=== PATIENT | male | born 1955 | race Caucasian/White ===

== ENCOUNTER 2018-03-14 21:14 | Inpatient (IN) ==
--- NOTE | 2018-03-14 21:59 | Diag Imaging Result Doc PS360 ---
CHEST-1 VIEW - 03/14/2018 INDICATION: cough COMPARISON: 03/13/2018 FINDINGS: The lungs are normally expanded and clear. Heart size and mediastinal contours are normal. No pneumothorax or pleural effusion. IMPRESSION: Negative exam. Electronically signed by Uday Pryor 03/14/2018 9:56 PM
[2018-03-14] MEDS ORDERED: MAXIPIME 2 GM in NS 100 ML IV ONE (22:12)
[2018-03-14] MEDS ORDERED: VANCOMYCIN 1 GM/NS 1 GM/250 ML IVPB IV ONE (22:12)
[2018-03-14] MEDS ORDERED: NS 1,000 ML IV ONE (22:13)
[2018-03-14] MEDS ORDERED: MORPHINE IV ONE (22:13)
[2018-03-14] MEDS ORDERED: TYLENOL LIQUID PO ONE (22:13)
[2018-03-14 22:53] LABS: BASO# 0.02 X1000 (0.0-0.2); BASO% 0.1 % (0.0-0.8); EOS# 0.01 X1000 (0.0-0.7); HEMATOCRIT 29.2 % (42.0-52.0); HEMOGLOBIN 9.6 g/dL (14.0-18.0); IMM GRAN# 0.09 X1000 (0.0-0.04); IMM GRAN% 0.4 % (0.0-0.5); LYMPH# 1.86 X1000 (1.2-3.4); LYMPH% 8.2 % (20.5-51.1); MCH 28.9 PG (27-31); MCHC 32.9 g/dL (33-37); MONO# 2.06 X1000 (0.11-0.59); MONO% 9.1 % (1.7-9.3); MPV 10.7 FL (7.4-10.4); NEUT# 18.54 X1000 (1.4-6.5); NEUT% 82.2 % (42.2-75.2); PLT 190 X1000 (130-400); RBC 3.32 XMIL (4.7-6.1); RDW 13.2 % (11.5-14.5); WBC 22.58 X1000 (4.8-10.8)
[2018-03-14 23:04] LABS: AGAP 11; ALB/GLOB RATIO 1.2; ALBUMIN 3.5 g/dL (3.5-5.0); ALKALINE PHOSPHATASE 64 U/L (32-122); BUN 16 mg/dL (8-22); CALCIUM 8.3 mg/dL (8.8-10.2); CHLORIDE 100 mmol/L (98-107); COSMO 272; CREATININE 0.9 mg/dL (0.7-1.2); ESTIMATED GFR > 60; GLUCOSE 119 mg/dL (70-104); GOT 15 U/L (10-34); GPT 13 U/L (10-44); POTASSIUM 3.6 mmol/L (3.5-5.1); SODIUM 135 mmol/L (136-145); TCO2 24 mmol/L (25-35); TOTAL BILIRUBIN 1.47 mg/dL (0.20-1.00); TOTAL PROTEIN 6.4 g/dL (6.3-8.3)
[2018-03-14 23:28] LABS: C REACTIVE PROT QUANT 198.16 mg/L (0.00-5.00); URIC ACID 3.9 mg/dL (3.4-7.0)
[2018-03-14] MEDS ORDERED: TYLENOL PO PRN (23:48)
[2018-03-15] MEDS: NS 1,000 ML IV SCH ×3 (01:45→18:31)
[2018-03-15 01:47] LABS: URINE SOURCE CLEAN CATCH
[2018-03-15] MEDS: LOVENOX SUBQ SCH ×2 (01:51→23:23)
[2018-03-15 02:10] LABS: BILIRUBIN URINE NEGATIVE (NEGATIVE); BLOOD URINE NEGATIVE (NEGATIVE); COLOR YELLOW; GLUCOSE URINE NEGATIVE (NEGATIVE); KETONE URINE 10 mg/dL (NEGATIVE); LEUKOCYTES URINE NEGATIVE (NEGATIVE); NITRITE URINE NEGATIVE (NEGATIVE); PROTEIN URINE 50 mg/dL (NEGATIVE); SP GRAVITY URINE 1.026; TURBIDITY URINE CLEAR (CLEAR); UROBILINOGEN URINE 8 mg/dL (NORMAL)
[2018-03-15 02:12] LABS: UR EPITHELIAL CELLS <10 /HPF (<10); URINE BACTERIA NEGATIVE /HPF; URINE RBC <10 /HPF (<10); URINE WBC <10 /HPF (<10)
[2018-03-15] MEDS: MORPHINE IV PRN ×5 (03:25→23:22)
[2018-03-15] MEDS: DUONEB (A & A) INH PRN ×3 (04:16→20:03)
[2018-03-15 07:06] LABS: BASO# 0.02 X1000 (0.0-0.2); BASO% 0.2 % (0.0-0.8); EOS# 0.01 X1000 (0.0-0.7); EOS% 0.1 % (0.0-10.0); HEMATOCRIT 35.3 % (42.0-52.0); HEMOGLOBIN 11.8 g/dL (14.0-18.0); IMM GRAN# 0.04 X1000 (0.0-0.04); IMM GRAN% 0.3 % (0.0-0.5); LYMPH# 1.48 X1000 (1.2-3.4); LYMPH% 12.1 % (20.5-51.1); MCH 29.4 PG (27-31); MCHC 33.4 g/dL (33-37); MONO% 9.8 % (1.7-9.3); MPV 10.8 FL (7.4-10.4); NEUT# 9.48 X1000 (1.4-6.5); NEUT% 77.5 % (42.2-75.2); PLT 150 X1000 (130-400); RBC 4.01 XMIL (4.7-6.1); RDW 13.4 % (11.5-14.5); WBC 12.23 X1000 (4.8-10.8)
--- NOTE | 2018-03-15 07:10 | HISTORY AND PHYSICAL ---
PRIMARY CARE PHYSICIAN: Pihlip Huertas DO REASON FOR ADMISSION: A 5-day history of intermittent fever, chills, due to history of progressive weakness and 2-day history of bilateral knee swelling and pain. HISTORY OF PRESENT ILLNESS: Mr. Pratik Pak is a 63-year-old male with past medical history of hepatitis C. Recently completed hepatitis C treatment. Last dose of Harvoni was February 24. He said he had been doing well up until about five days ago when he started feeling diffuse aches and pains with subjective low-grade fever and intermittent chills. Three days later he had a vomiting episode that night and was awakened to find that both of his knees were slightly swollen and in a lot of pain. He says as a consequence of the pain in his knees he was barely able to stand and ambulate and he had to require a walker to get around. The next morning he awoke the size of the swelling had doubled and the pain intensity also doubled. He said he also experienced generalized weakness. He denies any shortness of breath but he said he had been coughing for the last couple of days, nonproductive. It was at this juncture he went to the ER, which was that same day, i.e., yesterday, and he was diagnosed as having a possible right lower lobe pneumonia. He was given Levaquin and sent home and also given some IV fluids. Today the patient said this weekend he had gotten progressively worse despite the medication he received and he was also called in by the ER because his blood cultures were growing gram-negative rods. He denies any genitourinary complaints. No GI complaints. No focal neurological complaints. No rash. No arthralgia or swelling elsewhere other than his knees. No polyuria or polydipsia is noted. His urine is a little darker than normal. REVIEW OF SYSTEMS: A 12-system review was done. Positive finding as per HPI. The patient states he has been experiencing functional fecal incontinence due to the fact that he is unable to get up from the pain in his knees. ALLERGIES: None. MEDICATIONS: Other than the Levaquin, he is on no other medications. SURGICAL HISTORY: He has had joint implant of the right hallux. He has had bilateral knee surgery. He has cholecystectomy, dental procedures, surgery for detached retina. FAMILY HISTORY: Negative for heart disease, diabetes or cancer in first-degree relatives. SOCIAL HISTORY: The patient smokes half a pack a day and drinks about two beers. No illicit drug use. . LABORATORY DATA: His lab work at this point in time is pending. PHYSICAL EXAMINATION: VITAL SIGNS: Temperature is 98.4, heart rate 100, blood pressure is 151/113, respiratory rate is 18, oxygen saturation 96% on room air. GENERAL: He is middle-aged man who appears acutely ill. He is alert and oriented to person and time. Normal mood and affect. HEENT: Head is normocephalic, atraumatic. Eyes: PERRL, EOMI. He is anicteric and not pale. ENT and oropharyngeal exam is grossly normal. NECK: Supple. No JVD or carotid bruit, thyromegaly. No lymphadenopathy appreciated. CHEST: Decreased entry in the right lower base with questionable few crepitations noted. No wheezes. CARDIOVASCULAR: First and second heart sounds heard. No gallop, murmurs, rub. Rhythm is regular. ABDOMEN: Slightly protuberant, soft. No tenderness, no organomegaly. Bowel sounds hypoactive. RECTAL: Deferred at this time. EXTREMITIES: The patient has noticeable bilateral knee swelling. Moderate to large sized effusions of both knees. They are extremely warm to touch. They are also moderately tender to touch. The patient is unable to flex knee because of the excruciating pain and he would not even allow me to touch his knees to assess for passive range of motion. No erythema overlying the knees. No edema, clubbing or cyanosis. The patient has very good pulse volume distally in all extremities with god capillary refill. NEUROLOGIC: No gross focal deficits. SKIN: Intact with no breakdown, lesions, or erythema. MUSCULAR: See above. The patient has good power in upper extremities, 4/5. Difficulty to evaluate the patient's strength in lower extremities although he is able to dorsi and plantar flex with good strength but this is somewhat limited by the excruciating pain in both knees. ASSESSMENT: 1. Gram-negative bacteremia/sepsis which could have been anything from ? a pneumonia acquired Haemophilus influenza versus alternative tract, i.e. genitourinary versus GI. 2. Right lower lobe pneumonia. 3. Hypertension. 4. Possible septic arthritis secondary to seeding of prosthesis versus reactive inflammatory virus. 5. Recent hepatitis C treatment. PLAN: The patient will be started with high dose Maxipime to cover for gram- negative bacteremia. This will include coverage for pseudomonas. IV Vancomycin will also be given to cover for staphylococcal pneumonia and possible staphylococcal septic arthritis pending final cultures. Consult ID and Orthopedics to see patient. The latter will probably perform an arthrocentesis. Cultures will be probably sent off. Uric acid level has been ordered to rule out coexisting gout. Will treat patient symptomatically, Tylenol, opioids and if renal function is intact we will consider an NSAID. The patient's blood pressure is noted to be elevated but this can be from pain-related issues. In the interim will start patient on low-dose Cardura for blood pressure and this can be uptitrated after discussion with physician. Aggressive IV fluid resuscitation will be administered and if lactate levels are high this will also be followed simultaneously. If bacteremia is extensive, consider echocardiogram. Sed rate will also be ordered and need to be followed. It is possible that patient's knee swelling could be a reactive inflammatory arthritis?, effects of Harvoni ? likely. Will dictate further if any gross abnormalities in patient's lab work is noted. In the interim, the patient will be admitted to the ICU as a precautionary measures overnight and if he is stable will transfer to the floor. cc: MD Philip Marshall, DO DRISCOLL
[2018-03-15 07:17] LABS: AGAP 8; ALBUMIN 2.9 g/dL (3.5-5.0); ALKALINE PHOSPHATASE 68 U/L (32-122); BUN 15 mg/dL (8-22); CALCIUM 7.8 mg/dL (8.8-10.2); CHLORIDE 106 mmol/L (98-107); COSMO 279; CREATININE 0.8 mg/dL (0.7-1.2); ESTIMATED GFR > 60; GLUCOSE 112 mg/dL (70-104); GOT 38 U/L (10-34); GPT 29 U/L (10-44); POTASSIUM 3.8 mmol/L (3.5-5.1); SODIUM 139 mmol/L (136-145); TCO2 25 mmol/L (25-35); TOTAL BILIRUBIN 1.26 mg/dL (0.20-1.00); TOTAL PROTEIN 5.7 g/dL (6.3-8.3)
--- NOTE | 2018-03-15 07:53 | Diag Imaging Result Doc PS360 ---
KNEE 1-2 VIEWS-RIGHT - 03/14/2018 INDICATION: knee swelling TECHNIQUE: Two views COMPARISON: 02/22/2013 FINDINGS: There has been knee replacement. There is a large nonspecific suprapatellar joint effusion. No fracture or dislocation. No hardware fracture or loosening. No bony erosions. IMPRESSION: Large suprapatellar joint effusion, indeterminate. Electronically signed by Uday Pryor 03/15/2018 7:51 AM
--- NOTE | 2018-03-15 08:05 | Diag Imaging Result Doc PS360 ---
KNEE 1-2 VIEWS-LEFT - 03/14/2018 INDICATION: knee swelling TECHNIQUE: Two views COMPARISON: 02/22/2013 FINDINGS: There has been knee replacement. No fracture or dislocation. No hardware fracture or loosening. There is a large nonspecific joint effusion. IMPRESSION: Large nonspecific joint effusion. Electronically signed by Uday Pryor 03/15/2018 8:02 AM
[2018-03-15] MEDS ORDERED: DIPRIVAN 1% ONE (09:13)
[2018-03-15] MEDS ORDERED: VERSED ONE (09:13)
[2018-03-15] MEDS ORDERED: MAXIPIME 1 GM in NS 50 ML IV SCH (09:15)
[2018-03-15] MEDS ORDERED: XYLOCAINE-MPF 2% ONE (09:16)
--- NOTE | 2018-03-15 09:51 | INFECTIOUS DISEASE CONSULT REP ---
DATE: 03/15/2018 CONCLUSION: The patient has a gram-negative marianela bacteremia which unfortunately appears to have hematogenously involved both of the patient's knee prostheses. The exact origin of the gram- negative marianela is uncertain to me. If it turns out to be Haemophilus, then most likely the patient had some type of upper respiratory infection such as a sinusitis as the origin. The patient's chest x- ray is clear, thus making pneumonia an unlikely possibility. I also think the patient should be checked to see if he has an immunoglobulin deficiency. RECOMMENDATIONS: I have under sterile conditions bill fluid from the patient's right knee. It was purulent. It has been sent to the laboratory for cell count, crystals, Gram stain, and culture. The patient was given cefepime. I have increased the dose to 2 g IV every 12 hours pending the identification and susceptibility of the gram-negative marianela. DISCUSSION: The patient tells me that approximately a week ago he began having some fever and cough. He and also developed some shoulder pain, which has cleared, but his knees now have become swollen and are very painful with any movement. As mentioned above, I obtained purulent fluid from the knee and I am sure it is present in the other knee as well. The patient's blood is growing a gram-negative marianela. X-ray of both knee show large joint effusions. The patient's chest x-ray showed no infiltrate. Urinalysis showed no white cells or bacteria. Creatinine is 0.8. GFR is greater than 60. Liver function studies are normal. The patient's CBC initially, the white count was 22,000, today it is 12,230, hemoglobin is 11.8, and platelet count is 150,000. There is some question also that the patient might have eaten some sausage which was not very fresh and might not have been cooked thoroughly. PAST MEDICAL HISTORY/REVIEW OF SYSTEMS: Eyes and ears: The patient wears glasses. His hearing is okay. Neck: No stiffness. Respiratory: See present illness. Cardiac: No chest pain or palpitations. GI: No nausea, vomiting, or diarrhea. : No dysuria or flank pain. Bones, joints, muscles: See present illness. Endocrine: Patient does not have diabetes or thyroid disease. Neurologic: Patient does not have seizures. Prior to this illness he did not have any loss of motor or sensory function. PREVIOUS HOSPITALIZATIONS AND OPERATIONS: Patient has had surgery on his left foot. He has also had bilateral total knee arthroplasties. MEDICAL DISEASES: Positive for skin cancer. Negative for diabetes and hypertension. INFECTIOUS DISEASE HISTORY: Positive for hepatitis C. The patient has been treated with Harvoni and he does not have any active hepatitis C. FAMILY HISTORY: Positive for cancer and myocardial infarction. SOCIAL HISTORY: The patient lives in [place]. He is . He has a dog as a pet. 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 He smokes cigarettes. He rarely drinks alcoholic beverages. He does not abuse drugs. HOME MEDICATIONS: Include the following: Hydrocodone, Levaquin, multivitamins , and Cialis. PHYSICAL EXAMINATION: Vital Signs: Temperature is 98.7 degrees, pulse 84, respirations 20, blood pressure 129/71. The patient is 6 feet 4 inches tall and weighs 236 pounds. General: This is an obese, middle-aged male. He is in no acute distress. Head, eyes, ears, nose, and throat: He can hear my spoken words and see near objects. I do not see any white patches on his tongue. His sinuses are not tender. Neck: No meningismus. Lungs: Clear to auscultation. Cardiovascular: Heart rate is regular. Abdomen: Soft and nontender. Bones, joints, muscles : Both knees have large effusions. It causes the patient a lot of pain when his knees are moved. Integument: No rash noted. Neurologic: The patient is alert. He can move his extremities but it is painful when he moves his knees. There is no tremor. His sensation is intact to touch. His memory as regarding his medical history is intact. Integument: No rash noted. Thank you for the consult. cc: Fabrizio Seth MD [facility]
[2018-03-15] MEDS ORDERED: VANCOMYCIN 1 GM/NS 1 GM/250 ML IVPB ONE (10:08)
--- NOTE | 2018-03-15 10:15 | CONSULTATION ---
DATE OF CONSULTATION: 03/15/2018 HISTORY OF PRESENT ILLNESS: Mr. Pak is a 63-year-old male who presented to the emergency department with bilateral knee pain and swelling in his knees, and increasing pain in his knees that started this past and then about a 2-day history of getting some chills and increasing pain, so he came into the ER. He was admitted per the hospitalist service and Dr. Seth was consulted. Dr. Seth tapped the right knee this morning and got purulent material out of the knee joint, so Orthopedics was consulted. Mr. Pak had bilateral total knees about 4 years ago and has done great from those, but, unfortunately, like I said, over the past few days, have been getting inflamed, swollen, red, and painful. PAST MEDICAL HISTORY: Hepatitis C. PAST SURGICAL HISTORY: Bilateral knee replacements, right 1st MTP joint replacement, cholecystectomy. ALLERGIES: None. MEDICATIONS: Per the medical record. FAMILY HISTORY: Negative for heart disease. SOCIAL HISTORY: He smokes about half pack a day and drinks about 2 beers a day. REVIEW OF SYSTEMS: Positive for bilateral knee pain. All other systems are essentially negative. PHYSICAL EXAMINATION: General: Well-developed, well-nourished male who is in no acute distress. Head and Neck: Normocephalic, atraumatic. Respirations: Nonlabored breathing. Cardiovascular: Regular rate. Abdomen: Nondistended. Extremities: On right lower extremity exam, he has a lot of swelling to the knee. There is pain there with palpation. There is pain with range of motion. One can see where Dr. Seth tapped the knee. There is Betadine and a dressing there. He is neurovascularly intact to the right lower extremity. On left lower extremity exam, he has swelling to the knee about the same. It is red, hot, and swollen, and he has pain with range of motion. RADIOGRAPHS: Bilateral knee x-rays show a large supracondylar effusion. I do not see any hardware loosening. No fracture. ASSESSMENT: Bilateral septic knee, periprosthetic infection. PLAN: I discussed with Mr. Pak today that we are going to plan washing out the knees today. We do not have the polyethylene to exchange them today. It is at another facility, so we will order have to order those and maybe do a poly exchange in a few days from now, but we are going ahead and wash the knees out now and put antibiotic beads in to decrease his bacterial burden, and get him on IV antibiotics. I went over with him the procedure, risks, benefits, and potential complications. Risks include, but are not limited to infection, wound healing problems, damage to nerves, arteries and veins, numbness, malunion, nonunion, hardware-related issues, continued pain, DVT, and anesthesia-related risks. After discussing these with the patient, he expressed understanding and wished to proceed. We will get everything done now. He is NPO today. We have already called in the team. cc: Diogenes Harris MD
[2018-03-15] MEDS ORDERED: FENTANYL ONE (10:26)
[2018-03-15] MEDS: TOBRAMYCIN POWDER MISC ONE ×4 (11:00→14:01)
[2018-03-15] MEDS: VANCOMYCIN ONE ×4 (11:00→14:01)
[2018-03-15 11:23] LABS: BODY FLUID SOURCE SYNOVIAL FLUID; WBC BF 50180 /cumm
[2018-03-15 11:24] LABS: MONOS 8 %; POLYS 92 %
[2018-03-15] MEDS: DEMEROL ONE ×2 (12:04→18:33)
--- NOTE | 2018-03-15 12:18 | OPERATIVE NOTE ---
PROCEDURE DATE: 03/15/2018 POSTOPERATIVE DIAGNOSIS: Bilateral total knee periprosthetic infection. POSTOPERATIVE DIAGNOSIS: Bilateral total knee periprosthetic infection. PROCEDURES: 1. Bilateral knee irrigation and debridement with knee arthrotomy. 2. Bilateral knee placement of dissolvable antibiotic beads. SURGEON: Dr. Diogenes Harris. SERVICE TECH/WELDER: None. ANESTHESIA: General. No tourniquet was used. BLOOD LOSS: 50 mL blood loss on the left, 50 mL blood loss on the right. IMPLANTS: Dissolvable antibiotic beads with tobramycin and vancomycin and Hemovac drain. DISPOSITION: To PACU, hemodynamically stable. INDICATION FOR PROCEDURE: Mr. Pak is a 63-year-old male who started having some knee pain this past week. He started getting swelling in his knee this past which was 03/11/2018. Unfortunately it progressed and he came in last night. He was admitted per the hospitalist service. Dr. Seth tapped his knee this morning and found pus. Orthopedics was consulted. At that time I came in we made him NPO and took him to the OR this morning for bilateral knee wash out. I discussed with him the procedure, and he expressed understanding and wished to proceed. DESCRIPTION OF PROCEDURE: Mr. Pak was identified in the preoperative holding area. Bilateral knees were marked as correct surgical site. He was then wheeled to the operating room, placed supine on the operating table. All bony prominences well padded. He was induced under general anesthesia. LMA was placed. Bilateral lower extremities prepped with chlorhexidine, gluconate scrub and then ChloraPrep, and draped in normal sterile fashion. Surgical pause was performed. We identified the correct patient, correct side, and the correct procedure. Preop antibiotics were given. I started with the left knee. We went through his midline incision that was there previously and dissection was carried down to the deep fascia. We made a medial knee arthrotomy and immediately got a lot of pus out. There was a pretty good bit. We took cultures and then I used a suction tip and resected all of that purulent material. After I felt we had gotten all of that purulent material evacuated, I then irrigated the knee copiously with normal saline. We then used Vashe as well to clean the knee to try to kill bacteria and then washed it out again. We then mixed the antibiotic beads and put those in there and put a drain in as well coming out the superolateral side. I closed the arthrotomy with a 0 Maxon, 2-0 Maxon for the subcutaneous and faith on the skin. I then went to the right knee. The same thing, a midline incision, a medial arthrotomy and got a ton of purulent fluid out. We took cultures that side and evacuated all that purulent fluid. Irrigated everything copiously with normal saline. Then, Vashe and saline again and put a drain in and then packed it with antibiotic beads as well. Antibiotics were tobramycin and vancomycin in both batches. I then closed the arthrotomy with 0-Maxon, 2-0 Maxon for the subcutaneous and faith on the skin. Adaptic, 4x4s, ABD, Sof-Rol was applied and a soft dressing was applied. Drains were secured. He was then awoken from general anesthesia, moved to his own bed and taken to PACU in stable condition. Postoperatively he will be weight bear as tolerated. We will plan on another washout on 03/18/[address] Saini, and more than likely a poly exchange at that time. cc: Diogenes Harris MD
[2018-03-15] MEDS: MAXIPIME 2 GM in NS 50 ML IV SCH ×2 (13:52→21:23)
--- NOTE | 2018-03-15 14:05 | PROGRESS NOTE ---
DATE: 03/15/2018 SUBJECTIVE: This morning, Mr. Pak refers to be doing fairly okay. He just came out of surgery. He is status post some bilateral knee irrigation and debridement with knee arthrotomy and bilateral knee placement of dissolvable antibiotic beads. OBJECTIVE: Vital signs: Blood pressure is 139/79, pulse is 100, temperature 99.5 degrees. General: Mr. Pak is a 63-year-old male. He was in bed. He is not in any cardiopulmonary distress. Mucosa is dry, anicteric and acyanotic. Neck: Supple. Chest: Good air entry bilateral. There were no crepitations. No rhonchi. Cardiovascular: Regular rate and rhythm. There are no murmurs. No rubs. No gallops. Abdomen: Soft, nontender. Bowel sounds present. Extremities: Both knees are in orthopedic wrap and there is drainage system in both knees. 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 There is no focal neurological deficit. LABORATORY DATA: WBC is down to 12.23, hemoglobin is 11.8, platelet count of 150,000. Chemistry is also reviewed, completely normal. IMAGING STUDIES: Have also been reviewed. Both knees on x-ray did show large suprapatellar joint effusions. I reviewed the operative notes, which showed that there a lot of pus in both joints. The patient is currently status post knee irrigation and debridement with knee arthrotomy. ASSESSMENT: 1. Gram-negative marianela sepsis with bacteremia on presentation. 2. Bilateral septic knee with hardware. The patient is status post irrigation and debridement with knee atherectomy and bilateral knee placement of antibiotic beads by Dr. Harris. 3. Right lower lobe pneumonia associated with bacteremia. We think this is the source of the bacteremia that has unfortunately seeded the knee prosthesis . 4. History hepatitis C. 5. Clinical volume depletion. We will continue with the IV hydration. So, in general, I think Mr. Pak seems to be fairly stable. He is status post bilateral knee exploration. The knee fluid analysis is significant for septic arthritis and the operative notes also make mention of pus coming from both knees after the incisions. We are going to continue with the current antibiotic coverage. The patient is being seen by both ID and Orthopedic Team. cc: Jorge Barajas MD
[2018-03-15] MEDS ORDERED: CARDURA PO SCH (21:00)
[2018-03-15] MEDS: NORCO-7.5 PO PRN (21:15)
[2018-03-16] MEDS: NORCO-7.5 PO PRN ×4 (04:06→20:22)
[2018-03-16 07:09] LABS: BASO# 0.01 X1000 (0.0-0.2); BASO% 0.1 % (0.0-0.8); EOS# 0.02 X1000 (0.0-0.7); EOS% 0.2 % (0.0-10.0); HEMATOCRIT 32.1 % (42.0-52.0); HEMOGLOBIN 10.9 g/dL (14.0-18.0); IMM GRAN# 0.03 X1000 (0.0-0.04); IMM GRAN% 0.3 % (0.0-0.5); LYMPH% 14.7 % (20.5-51.1); MCH 29.5 PG (27-31); MCV 86.8 FL (81-99); MONO# 1.05 X1000 (0.11-0.59); MONO% 10.3 % (1.7-9.3); MPV 10.6 FL (7.4-10.4); NEUT% 74.4 % (42.2-75.2); PLT 162 X1000 (130-400); RDW 13.3 % (11.5-14.5); WBC 10.21 X1000 (4.8-10.8)
[2018-03-16 07:33] LABS: AGAP 9; ALBUMIN 2.6 g/dL (3.5-5.0); BUN 13 mg/dL (8-22); CALCIUM 7.8 mg/dL (8.8-10.2); CHLORIDE 105 mmol/L (98-107); COSMO 277; CREATININE 0.8 mg/dL (0.7-1.2); ESTIMATED GFR > 60; GLUCOSE 119 mg/dL (70-104); PHOSPHORUS 3.7 mg/dL (2.7-4.5); POTASSIUM 3.5 mmol/L (3.5-5.1); SODIUM 138 mmol/L (136-145); TCO2 24 mmol/L (25-35)
[2018-03-16] MEDS: MAXIPIME 2 GM in NS 50 ML IV SCH (10:22)
--- NOTE | 2018-03-16 11:23 | INFECTIOUS DISEASE PROGRESS NO ---
DATE: 03/16/2018 PRESENT ILLNESS: The patient has Haemophilus bacteremia and an associated hematogenous involvement of both total knee arthroplasties. MEDICATIONS: Currently, the patient is on cefepime. PHYSICAL EXAMINATION: Vital Signs: Temperature is 99 degrees, pulse 82, respirations 19, blood pressure 122/71. General: This is a somewhat ill-appearing middle-aged male. He is in no acute distress. Head, eyes, ears, nose, and throat: He can hear my spoken words and see near objects. He does not have any drainage from his nose or ears. Neck: No stiffness. Lungs: Clear to auscultation. Cardiovascular: Regular heart rate. Abdomen: Soft and nontender. Extremities: Both knees have dressings and Jacques wraps around them. They are intact. Neurologic: Patient is alert. He can move his extremities. There is no tremor. LABORATORIES AND X-RAY: The patient's blood culture drawn on the 13 of March grew Haemophilus influenzae susceptible to all antibiotics tested. Repeat blood cultures are sterile. Immunoglobulin levels are normal. Specifically, the IgG is 760 and the IgA is 114. Thus far all cultures from the patient's knees are negative. [place] [address], hemoglobin 10.9, and platelet count 162,000. Creatinine is 0.8. GFR is greater than 60. ASSESSMENT AND PLAN: Patient has Haemophilus bacteremia and bilateral infected total knee arthroplasties with septic arthritis. My plan is to switch the patient to Rocephin and when he leaves the hospital, I will switch him over to oral Levaquin. Some of the side effects of Levaquin including rash, diarrhea, seizures, tendon rupture and neurologic abnormalities have been explained to the patient who agrees with treatment. I have ordered a CT scan of the sinuses to be done tomorrow morning. COMORBIDITIES: I cannot really find any definite comorbidity. I do plan on getting a CT scan of the sinuses to see if the patient had sinusitis and this may have been where the patient's bacteremia originated from. cc: Fabrizio Seth MD
--- NOTE | 2018-03-16 13:26 | PROGRESS NOTE ---
DATE: 03/16/2018 SUBJECTIVE: Mr. Pak is laying in bed this morning. Overall pain seems to be pretty well controlled. OBJECTIVE: Bilateral lower extremity exam: Dressings are clean, dry, and intact. Both Hemovacs were still intact as well. He is neurovascularly intact to bilateral lower extremities. ASSESSMENT: Status post bilateral total knee irrigation, debridements for infection, and placement of dissolvable antibiotic beads. PLAN: Mr. Pak was going to remain on IV antibiotics. We will continue to watch his knees. Dr. Saini will start following him tomorrow. He is more than likely going to plan a washout again for both knees on , 03/18/2018. cc: Diogenes Harris MD
--- NOTE | 2018-03-16 15:30 | PROGRESS NOTE ---
DATE: 03/16/2018 Overnight no acute events. He did have a one time episode of temperature of 100.8 degrees, but he was asymptomatic in the morning time. He is feeling fine. He also underwent bilateral knee arthrotomy, washout off the knee joint space with placement of antibiotic beads and drain, which he tolerated well. In the morning, states he is feeling better. He denies any chest pain, shortness of breath. He denies any nausea or vomiting. He has been eating okay. We discussed plan of care and answered all of his questions. VITALS: Detect temperature of 100.2 degrees, pulse of 92 per minute, blood pressure 134/74, saturating 100% on room air. PHYSICAL EXAMINATION: General: Does not appear in acute distress. Air entry bilaterally equal, no wheeze, rhonchi, crackles. However, examination is restricted because of thick chest wall. Cardiovascular: S1, S2 normal. No murmur or gallop. Abdomen: Soft, nontender. No lower extremity edema. Bilateral knee has bandages with wound drain in place. LABS: Suggest resolution of leukocytosis, normocytic anemia. Normal electrolytes and normal kidney function. ASSESSMENT AND PLAN: 1. Haemophilus influenza bacteremia. Possible sources of this could be suspected pneumonia bilateral lower lobe as detected as suspected on chest x-ray on March 13. The patient had taken 2 doses of levofloxacin after that, which could be the reason why the blood culture on March 14 was negative. In any case, he is awaiting CT scan of his sinuses to rule out any sinusitis contributing to that. Repeat blood culture on March 14 has been negative. Continue iv Ceftriaxone. 2. 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 Appreciate recommendation. It is possible that the pneumonia had seeded the bilateral knee processes. 3. History of hepatitis C, aware. 4. Clinical volume depletion, now appears to have resolved. The patient has been eating a regular diet well and is off intravenous fluids for now. DISPOSITION: Patient remains inside the hospital as he has bilateral knee drains. According to the patient, orthopedic surgery was planning a repeat washout on 03/18/2018. Plan of care was discussed with him. All of his questions have been answered. cc: MD AMERICO Crump
[2018-03-16] MEDS: DUONEB (A & A) INH PRN ×2 (18:02→23:56)
[2018-03-16] MEDS: ROCEPHIN 2 GM in NS 50 ML IV SCH (20:23)
[2018-03-16] MEDS: LOVENOX SUBQ SCH (23:16)
[2018-03-17] MEDS: NORCO-7.5 PO PRN ×4 (02:00→23:37)
--- NOTE | 2018-03-17 07:51 | PROGRESS NOTE ---
DATE: 03/17/2018 Mr. Pak was seen today for follow-up of his bilateral knee replacements. Over the holidays, he got sick and septic and seated his knees. He has undergone one I and D already. We discussed further treatment options. We will plan a repeat I and D tomorrow with replacement of the antibiotic beads, as well as polyethylene spacer exchange. He will require IV antibiotics at home. We will plan on repeating the procedure tomorrow. He is aware of the risks such as anesthesia, bleeding, infection, damage to tendon, nerve, or blood vessel, and no guarantees regarding complications of curing the infection. cc: George Saini MD
--- NOTE | 2018-03-17 08:41 | Diag Imaging Result Doc PS360 ---
EXAM: CT MAXILLOFACIAL(SINUS) W/O CO INDICATION: sinusitis TECHNIQUE: COMPARISON: None. FINDINGS: There is very mild chronic appearing ethmoid and maxillary sinus mucosal thickening. No paranasal sinus air-fluid levels are identified. The ostiomeatal complexes are patent bilaterally. There is a small left mastoid air cell effusion. The middle ear cavities appear patent. 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 There is mild rightward deviation of the nasal septum. Surrounding soft tissues are essentially unremarkable. IMPRESSION: 1.Mild ethmoid and maxillary sinus mucosal disease. 2.Small left mastoid air cell effusion. Electronically signed by George Manriquez 03/17/2018 8:39 AM
[2018-03-17] MEDS: ROCEPHIN 2 GM in NS 50 ML IV SCH ×2 (08:49→22:50)
--- NOTE | 2018-03-17 15:00 | PROGRESS NOTE ---
DATE: 03/17/2018 SUBJECTIVE: This morning Mr. Pak refers to be doing fairly okay, he did not have any new complaints. was at the bedside at the time of the encounter. OBJECTIVE: Vital signs: Blood pressure is 130/75, pulse is 93, respiration is 21, temperature is 100 degrees. Patient was saturating 97% on room air. General: Mr. Pak is a 63-year-old gentleman. He was in bed. No distress. Mucosa is pink and moist. Anicteric. Acyanotic. Neck: Supple. Respiratory System: Good air entry bilateral. There were no crepitations. No rhonchi. Cardiovascular: Regular rate and rhythm. No murmurs, no rubs, no gallops. Gastrointestinal: Abdomen was soft, nontender. Bowel sounds present. No hepatosplenomegaly. Extremities: No pedal edema. Distal pulses were present. Both knees were wrapped up and there is a drain system in place. Central Nervous System: The patient is awake, alert, and oriented. There is no focal neurological deficit. LABORATORY DATA: No labs for this morning. Microbiology, so far the knee fluid has shown no growth. Blood cultures have also been negative. ASSESSMENT: 1. Haemophilus influenzae bacteremia. We presume this is coming from the lungs. 2. Bilateral septic knee with hardware. The patient is status post incision and drainage. There is a plan for another intervention tomorrow. 3. Right lower lobe infiltrate questionable for pneumonia, presumably due to Haemophilus influenzae which is associated with bacteremia. Patient is getting IV antibiotics. 4. History of hepatitis C noted. 5. Clinical volume depletion improved. cc: Jorge Barajas MD
[2018-03-18] MEDS: LOVENOX SUBQ SCH (00:53)
[2018-03-18] MEDS: NORCO-7.5 PO PRN (07:55)
[2018-03-18] MEDS: ROCEPHIN 2 GM in NS 50 ML IV SCH ×2 (08:05→22:01)
--- NOTE | 2018-03-18 08:19 | PROGRESS NOTE ---
DATE: 03/18/2018 Mr. Pak is status post incision and drainage of bilateral knees. We will plan on repeating debridement and irrigation of both knees today with polyethylene exchange and antibiotic beads. The risks and benefits were discussed yesterday. He is aware of the plan. We will make arrangements and go ahead and proceed with that later this morning. cc: George Saini MD
[2018-03-18] MEDS ORDERED: VANCOMYCIN ONE (11:03)
[2018-03-18] MEDS ORDERED: XYLOCAINE-MPF 2% ONE (11:15)
[2018-03-18] MEDS ORDERED: TOBRAMYCIN POWDER MISC ONE (11:15)
[2018-03-18] MEDS ORDERED: DIPRIVAN 1% ONE (11:16)
[2018-03-18] MEDS ORDERED: FENTANYL ONE ×2 (12:21→13:00)
[2018-03-18] MEDS ORDERED: DECADRON ONE (13:05)
[2018-03-18] MEDS ORDERED: ZOFRAN ONE (13:05)
[2018-03-18] MEDS ORDERED: LR 500 ML ONE (13:52)
--- NOTE | 2018-03-18 14:02 | OPERATIVE NOTE ---
PROCEDURE DATE: 03/14/2018 PREOPERATIVE DIAGNOSIS: Bilateral septic total knee replacements. POSTOPERATIVE DIAGNOSIS: Bilateral septic total knee replacements. OPERATIVE PROCEDURES: 1. Irrigation and drainage of right knee with polyethylene exchange and implantation of antibiotic beads. 2. Irrigation and drainage of left knee with antibiotic beads and polyethylene exchange. SURGEON: Dr. Sebastian Saini CABLE SPLICER HELPER: RODRIGUEZ Vitale. MrQuang Pederson was necessary for proper manipulation and retraction of the soft tissues during the case. ANESTHESIA: General. COMPLICATION: None. PROCEDURE IN DETAIL: This 63-year-old male is status post initial washout after having hematogenous seeding of both knee replacements with gram-negative marianela, and presents for second- stage washout and polyethylene exchange. Risks, benefits, and no guarantees were discussed and he is willing to proceed. The patient was taken the operating room and satisfactory anesthesia was obtained. Both knees were prepped and draped in the usual sterile fashion. A time-out was taken to confirm operative site, procedure, and patient. The right knee was undertaken first and the leg wrapped with an Esmarch, and tourniquet inflated 350 mmHg. The previous midline incision was opened and a medial arthrotomy made to expose the joint. Roughly 40 mL of serosanguineous fluid was noted, but no carlene purulence. The previous antibiotic beads and joint were irrigated with a liter of a irrigant. The polyethylene spacer was removed. The knee was irrigated with 1 L of Bactisure according to package insert. After this, it was then irrigated with normal saline consisting of a liter again. The joint capsule was then soaked for 3 minutes with a dilute Betadine solution. This was then VAC-suctioned out of the wound. The new polyethylene bearing for a number size 5 femur with a 12 mm thickness was inserted in the knee and the knee reduced. Full range of motion with good stability and patellar tracking was noted. Antibiotic-impregnated beads were then placed inside the joint capsule and the joint capsule closed with #1 Vicryl. Some more beads were placed in the subcutaneous space and this was closed over with 2-0 Vicryl and skin faith. Prior to closing the joint capsule, a Hemovac drain was placed and brought out through the anterolateral retinaculum. Sterile dressings were placed over the right knee and the tourniquet released. The left leg was then undertaken and wrapped with an Esmarch, and tourniquet inflated to 350 mmHg on the left leg. A similar technique with a midline incision and medial arthrotomy was utilized to expose the joint. Some serous fluid was noted, but no carlene purulence. The polyethylene spacer was removed, the knee was thoroughly irrigated, and the previous antibiotic beads removed from the knee synovium which was inflamed. The joint was then irrigated with a liter of Bactisure according to package insert followed by another liter of normal saline afterwards. The joint capsule was then soaked in dilute Betadine for 3 minutes. Afterwards, this was suctioned from the wound. A 17 mm spacer was then placed back in the knee with a polyethylene bearing and the knee reduced. Good range of motion and stability were noted. A Hemovac drain was placed. Antibiotic beads were placed into the joint capsule and the joint capsule closed with #1 Vicryl. Some more antibiotic beads were placed in the subcutaneous space and this was closed with 2-0 Vicryl followed by skin faith. Sterile dressings completed the closure and the tourniquet was released with good return of capillary blood flow. The patient was then recovered from anesthesia and transferred to the recovery room in stable condition. No intraoperative complications were noted. Instrument count and sponge count were correct at the time of closure. cc: George Saini MD
[2018-03-18] MEDS ORDERED: MORPHINE ONE ×3 (14:10→14:30)
[2018-03-18] MEDS ORDERED: ZOFRAN PO PRN (14:15)
[2018-03-18] MEDS ORDERED: MORPHINE IV PRN ×3 (14:15)
[2018-03-18] MEDS ORDERED: ZOFRAN ODT PO PRN (14:15)
[2018-03-18] MEDS: TYLENOL PO SCH ×2 (15:09→21:52)
[2018-03-18] MEDS: ULTRAM PO SCH ×2 (15:10→21:57)
--- NOTE | 2018-03-18 15:47 | PROGRESS NOTE ---
DATE: 03/18/2018 SUBJECTIVE: This morning Mr. Pak refers to be doing pretty good. He did not really have any complaint. He was awaiting for his second re-intervention. OBJECTIVE: Vital signs: Blood pressure was 121/69, pulse is 81, respiration was 20, temperature was 99.1 degrees. Patient was saturating 97% on room air. General exam: Mr. Pak is a 63-year- old gentleman. He was in bed. was at the bedside at the time of the encounter. The patient was not in any distress. HEENT: Mucosa is pink and moist. Anicteric. Acyanotic. Neck: Supple. Chest: Good air entry bilateral. There were no crepitations, no rhonchi. Cardiovascular: Regular rate and rhythm. There are no murmurs, no rubs, no gallops. Abdomen: Soft, nontender. Bowel sounds present. Extremities: No pedal edema. Distal pulses were present. Both knees continue to be wrapped up in sterile dressing and draining system in place. CORROSION CONTROL TECHNICIAN: Patient was awake and alert and oriented. There is no focal neurological deficit. LABORATORY DATA: There is no lab work today. ASSESSMENT: 1. Haemophilus influenzae bacteremia. Subsequent blood cultures have been negative. 2. Bilateral septic knees with hardware. Patient is status post incision and drainage. There is a second intervention today. 3. Right lower lobe infiltrate questionable for pneumonia. We will continue with the current intravenous antibiotics. Infectious Disease is on board. 4. History of a hepatitis C noted. 5. Clinical volume depletion, resolved. PLAN: So, in general, I think Mr. Pak seems to be doing fairly okay. No new complaints. He is pending a second revision of the joint. We will follow up later on after surgery. cc: Jorge Barajas MD
[2018-03-18] MEDS: OXY IR PO PRN ×2 (15:58→19:01)
[2018-03-18] MEDS: COLACE PO SCH (21:58)
[2018-03-18] MEDS: CELEBREX PO SCH (21:58)
[2018-03-19] MEDS: TYLENOL PO SCH ×4 (01:36→20:52)
[2018-03-19] MEDS: ULTRAM PO SCH ×4 (01:36→20:51)
[2018-03-19] MEDS: OXY IR PO PRN (06:42)
[2018-03-19] MEDS: LOVENOX SUBQ SCH (06:42)
--- NOTE | 2018-03-19 08:58 | PROGRESS NOTE ---
DATE: 03/19/2018 SUBJECTIVE DATA: Mr. Pak was seen on postop day 1 of incision and drainage of bilateral knees with poly exchanged. He reports he is doing well at this time. He reports his knees feel much better, and he can actually lift his legs now. He reports his pain is about a 4 out of 10 at this time. OBJECTIVE DATA: There was good sensation of bilateral lower extremities. There is good capillary refill on toes. There is negative Homans sign bilaterally. There is decreased range of motion to bilateral knees due to stiffness and Jacques wrap. The bandages are clean and dry. There was about 50 to 75 mL of bloody drainage in both drains. There is still some mild moderate swelling to bilateral knees. There is some moderate medial joint line tenderness to the right knee. LABS: Have much improved. White blood cell 10.21, hemoglobin 10.9, hematocrit 32.1. Sodium 138, potassium 3.5, chloride 105, creatinine 0.8. Cultures from the left knee show no growth. ASSESSMENT: Total replacement of bilateral knee joints with leukocytosis and septicemia. PLAN: Will plan on monitoring Mr. Pak at this point in time. He is doing much better. He plans on going to rehab soon. Dictated by RODRIGUEZ Vitale for George Saini MD cc: RODRIGUEZ Vitale MD
[2018-03-19] MEDS: COLACE PO SCH ×2 (09:10→20:52)
[2018-03-19] MEDS: CELEBREX PO SCH ×2 (09:10→20:51)
[2018-03-19] MEDS: ROCEPHIN 2 GM in NS 50 ML IV SCH ×2 (09:18→20:51)
--- NOTE | 2018-03-19 16:00 | PROGRESS NOTE ---
DATE: 03/19/2018 SUBJECTIVE: This morning Mr. Pak refers to be doing a whole lot better. He had surgeries done yesterday on both knees. Per the surgery report, there was no real purulence in the joint. OBJECTIVE: Vital signs: Blood pressure is 104/56, pulse is 91, respiration is 20, temperature is 97.6 degrees. General exam: Mr. Pak is a 63-year-old gentleman. He was in bed in no distress. HEENT: Mucosa is pink and moist. Anicteric. Acyanotic. Neck: Supple. Chest: Clear to auscultation. No crepitations. No rhonchi. No accessory muscle use. Cardiovascular: Regular rate and rhythm. No murmurs, no rubs, no gallops. Abdomen: Soft, nontender. Bowel sounds present. Extremities: No pedal edema. Both knees continue to be wrapped up in orthopedic dressings. The drainage system is still in place. DEVELOPMENT TRAINER: Patient is awake, alert, and oriented. There is no focal neurological deficit. LAB WORK: No lab work for this morning. ASSESSMENT: 1. Haemophilus influenzae bacteremia, resolved. Subsequent blood cultures have been negative. 2. Bilateral septic arthritis with hardware. The patient is status post incision and drainage with intra-articular antibiotic bead implants. 3. Right lower lobe infiltrate questionable for pneumonia, improved. 4. History of hepatitis C. 5. Clinical volume depletion, resolved. CURRENT MEDICATIONS: 1. The patient's current medications have also been reviewed, includin. Ceftriaxone. Today is day 3 on that. 3. Colace. 4. Lovenox 40 subcutaneous. 5. Morphine p.r.n. cc: Jorge Barajas MD
--- NOTE | 2018-03-19 22:17 | INFECTIOUS DISEASE PROGRESS NO ---
DATE: 03/19/2018 PRESENT ILLNESS: Patient has Haemophilus bacteremia with an associated hematogenous involvement of both of his total knee arthroplasties. MEDICATIONS: The patient is on Rocephin 2 g IV every 12 hours. PHYSICAL EXAMINATION: Vital signs: Temperature is 97.6 degrees, pulse 91, respirations 20, blood pressure 104/56. General: This is a healthy-appearing, middle-aged male. He is in no acute distress. Head, eyes, ears, nose, and throat: He can hear my spoken words and see near objects. There is no drainage from his nose or ears. Neck: No stiffness. Lungs: Clear to auscultation. Cardiovascular: Regular heart rate. Abdomen: Soft and nontender. Bones, joints, muscles: Both knees have drains in place and large dressings around them. The dressings are in place. Neurologic: Patient is alert, he can move his extremities. There is no tremor. LAB AND X-RAY: The patients does not have any current lab work. The last lab work was on the 16 of March. CBC showed a white count of 10,210, hemoglobin 10.9 and platelet count 162,000. Creatinine was 0.8. GFR is greater than 60. There is no new radiographic study. ASSESSMENT AND PLAN: I discussed with the patient and his was also present that I thought in general, Rocephin probably had less side effects than Levaquin and. After we discussed the side effects of both antibiotics the patient and his wanted to continue with Rocephin for the whole treatment course. I told them that the main side effect of Rocephin would be rash or diarrhea. Also, I told them about having a PICC installed for long-term IV access. Patient is going to be going to a rehab facility and I have put a consult in for [facility] to supply home IV Rocephin once the patient leaves the rehab facility. I have ordered for the patient to visit my office in approximately 3 weeks. COMORBIDITIES: The patient did have on CT scan mild ethmoid and maxillary sinus disease. The sinus infection would be about the only thing I can find where the Haemophilus in the bloodstream originally came from. cc: Fabrizio Seth MD
[2018-03-20] MEDS: OXY IR PO PRN ×4 (01:03→21:56)
[2018-03-20] MEDS: ULTRAM PO SCH ×4 (02:04→21:03)
[2018-03-20] MEDS: TYLENOL PO SCH ×4 (02:04→21:03)
[2018-03-20] MEDS: LOVENOX SUBQ SCH (05:55)
[2018-03-20] MEDS: COLACE PO SCH ×2 (08:40→21:03)
[2018-03-20] MEDS: CELEBREX PO SCH ×2 (08:40→21:03)
[2018-03-20] MEDS: ROCEPHIN 2 GM in NS 50 ML IV SCH ×2 (08:40→21:02)
--- NOTE | 2018-03-20 15:15 | PROGRESS NOTE ---
DATE: 03/20/2018 SUBJECTIVE: This morning, Mr. Pak refers to be doing fairly okay. No complaints. OBJECTIVE: Vital signs: Blood pressure is 142/92, pulse 78, respiratory rate 20 and temperature is 97.7. General: Mr. Pak is a [id number] gentleman. He was in bed in no distress. HEENT: Mucous membranes are pink and moist. Anicteric. Acyanotic. Neck: Supple. Respiratory: Good air entry bilaterally. No crepitations. No rhonchi. No accessory muscle use. Cardiovascular: Regular rate and rhythm. No murmurs, rubs or gallops. GI: Abdomen is soft and nontender. Bowel sounds are present. No hepatosplenomegaly. Extremities: Trace pedal edema. Distal pulses are present. SUPERVISOR FISHING: The patient is awake, alert and oriented. No focal neurological deficits. Musculoskeletal: Both knees are wrapped. Draining systems have been removed. ASSESSMENT: 1. Haemophilus influenza bacteremia, resolved. Subsequent blood cultures have been negative. The patient is on IV ceftriaxone. 2. Bilateral septic arthritis with hardware. The patient is status post I D ( twice) with intraarticular antibiotic beads implant. 3. Pansinusitis/possible pneumonia. We think this was the source of the haemophilus influenza. 4. History of hepatitis C. 5. Clinical volume depletion, resolved. In general, I think Mr. Pak is doing fairly okay. We are still pending rehab placement. Hopefully, to [facility] on Thursday. He is going to be needing IV antibiotics for a prolonged period of time because of the septic knee with hardware. The patient has been ordered for a PICC line on Thursday, and hopefully, once that is done and there is a bed at [facility] we can get him there. cc: Jorge Braajas MD MTDD
[2018-03-21] MEDS: OXY IR PO PRN ×5 (00:57→19:38)
[2018-03-21] MEDS: ULTRAM PO SCH ×4 (02:00→21:08)
[2018-03-21] MEDS: TYLENOL PO SCH ×4 (02:00→21:09)
[2018-03-21] MEDS: LOVENOX SUBQ SCH (05:21)
[2018-03-21] MEDS: COLACE PO SCH ×2 (08:30→21:09)
[2018-03-21] MEDS: CELEBREX PO SCH ×2 (08:30→21:09)
[2018-03-21] MEDS: ROCEPHIN 2 GM in NS 50 ML IV SCH ×2 (08:31→21:08)
--- NOTE | 2018-03-21 14:42 | PROGRESS NOTE ---
DATE: 03/21/2018 SUBJECTIVE: This morning Mr. Alexander refers to be doing fairly okay. No new complaints. OBJECTIVE: Vital signs: Blood pressure is 132/87, pulse is 77, respirations 18 , temperature is 98.2 degrees. Patient is saturating 97% on room air. General: Mr. Pak is a 63-year-old gentleman. He is in bed, no distress. Mucosa is pink and moist. Anicteric. Acyanotic. Neck: Supple. Chest: Clear to auscultation. No crepitations. No rhonchi. No accessory muscle use. Cardiovascular: Regular rate and rhythm. No murmurs, no rubs, no gallops. GI: Abdomen soft, nontender. Bowel sounds present. No hepatosplenomegaly. Extremities: Trace pedal edema. Distal pulses are present. SHIRT TURNER: Patient is awake, alert, and oriented. There is no focal neurological deficit. Musculoskeletal: Both knees are wrapped. Draining system has been removed. LABORATORY DATA: None for today. CURRENT MEDICATIONS: Have been reviewed. He is on ceftriaxone. Today is day 5 on that. Rest of his other medications have been reviewed. ASSESSMENT: 1. Haemophilus influenzae bacteremia. Subsequent blood cultures negative. Patient is currently on ceftriaxone. Today is day 5. 2. Bilateral septic arthritis with hardware. The patient is status post I D 2 times intervention with intra-articular antibiotic beads implant. 3. Pansinusitis with possible pneumonia. Patient is on antibiotics. We think this is probably the source of the Haemophilus influenzae bacteremia. 4. History of hepatitis C, stable. In general, I think Mr. Pak is stable. We are pending a PICC line for long -term antibiotic use and waiting for rehab evaluation for discharge. cc: MD AMERICO Wall
[2018-03-22] MEDS: TYLENOL PO SCH ×4 (02:16→20:21)
[2018-03-22] MEDS: ULTRAM PO SCH ×4 (02:17→20:22)
[2018-03-22] MEDS: LOVENOX SUBQ SCH (05:58)
[2018-03-22] MEDS ORDERED: NS 250 ML ONE (08:01)
[2018-03-22] MEDS: ROCEPHIN 2 GM in NS 50 ML IV SCH ×2 (09:06→20:21)
[2018-03-22] MEDS: OXY IR PO PRN ×4 (09:06→23:00)
[2018-03-22] MEDS: CELEBREX PO SCH ×2 (09:06→20:21)
[2018-03-22] MEDS: COLACE PO SCH ×2 (09:13→20:21)
--- NOTE | 2018-03-22 10:37 | PROGRESS NOTE ---
DATE: 03/22/2018 SUBJECTIVE: This morning Mr. Pak refers to be doing a lot better, just pending PICC line placement and rehab placement. OBJECTIVE: Vital Signs: Blood pressure is 147/86, pulse is 76, respiration is 18, temperature is 97.5. General: Mr. Pak is a 63-year-old male. He was in bed no distress. HEENT: Mucosa is pink and moist. Anicteric. Acyanotic. Neck: Supple. Chest: Clear to auscultation. No accessory muscle use. Cardiovascular: Regular rate and rhythm. No murmurs, no rubs, no gallops. Gastrointestinal: Soft, nontender. Bowel sounds present. No hepatosplenomegaly. Extremities: Some trace pedal edema. Distal pulses are present. Central Nervous System: Patient is awake, alert, oriented. No focal neurological deficit. Musculoskeletal: Both knees are wrapped in sterile dressing. No more drainage from the knees. LABORATORY DATA: None for today. INR is 1.0. ASSESSMENT: 1. Haemophilus influenzae bacteremia. Subsequent blood cultures have been negative. Patient is on ceftriaxone, today is day 6. 2. Bilateral septic arthritis with hardware. The patient is status post I D twice with intra- articular antibiotic beads implant. 3. Pansinusitis with possible pneumonia. Patient is on antibiotic. We will presume that was probably the source of the Haemophilus influenzae bacteremia. 4. History of hepatitis C, noted. PLAN: So, in general, I think Mr. Pak is fairly stable. We are getting him a PICC line. He is also pending evaluation by [facility] for rehab bed. Once he gets accepted to the rehab we will get him there either today or tomorrow. cc: Jorge Barajas MD
--- NOTE | 2018-03-22 14:25 | INFECTIOUS DISEASE PROGRESS NO ---
DATE: 03/22/2018 PRESENT ILLNESS: The patient has a Haemophilus bacteremia with an associated hematogenous involvement of both total knee arthroplasties. MEDICATIONS: Patient is receiving Rocephin in a dose of 2 g IV every 12 hours. PHYSICAL EXAMINATION: Vital Signs: Temperature is 98 degrees, pulse 80, respirations 16, blood pressure 130/80. General: This is a healthy-appearing, middle-aged male. He is in no acute distress. Head/eyes/ears/nose/throat: He can hear my spoken words and see near objects. He does not have any drainage from his nose or ears. He does not have any white patches on his tongue. Neck: No meningismus. Lungs: Clear to auscultation. Cardiovascular: Heart rate is regular. Abdomen: Soft and nontender. Bones joints and muscles: I removed the patient's dressings from both knees. Both incisions are intact. There is no erythema, and there is some slight swelling of the knees, but the patient says that it gets less swollen by the day. Neurologic: The patient is alert. He can move his extremities. There is no tremor. LAB AND X-RAY: There is no new lab or x-ray for today. ASSESSMENT AND PLAN: The patient will be treated with Rocephin as mentioned above for a total of 6 weeks. The patient is going to go to a rehab facility and after he is done at the rehab facility, he will go home and continue to get his antibiotics through [facility]. While at the rehab facility, the patient also will continue to get his antibiotics namely Rocephin 2 g IV every 12 hours. The patient at home and in the rehab center will continue to get Rocephin 2 g IV every 12 hours. The patient will be seen in my office in approximately 3 weeks. COMORBIDITIES: The patient had mild sinus disease, which is the only pathologic thing I could find where the patient's Haemophilus could have arisen. cc: Fabrizio Seth MD
[2018-03-23] MEDS: ULTRAM PO SCH ×4 (03:20→21:23)
[2018-03-23] MEDS: TYLENOL PO SCH ×4 (03:20→21:23)
[2018-03-23] MEDS: LOVENOX SUBQ SCH (06:36)
[2018-03-23 07:06] LABS: BASO# 0.04 X1000 (0.0-0.2); BASO% 0.4 % (0.0-0.8); EOS# 0.32 X1000 (0.0-0.7); EOS% 3.6 % (0.0-10.0); HEMATOCRIT 34.7 % (42.0-52.0); HEMOGLOBIN 11.4 g/dL (14.0-18.0); LYMPH# 1.58 X1000 (1.2-3.4); LYMPH% 17.7 % (20.5-51.1); MCH 29.7 PG (27-31); MCHC 32.9 g/dL (33-37); MCV 90.4 FL (81-99); MONO# 0.66 X1000 (0.11-0.59); MONO% 7.4 % (1.7-9.3); MPV 9.4 FL (7.4-10.4); NEUT# 6.34 X1000 (1.4-6.5); NEUT% 70.9 % (42.2-75.2); PLT 488 X1000 (130-400); RBC 3.84 XMIL (4.7-6.1); RDW 13.5 % (11.5-14.5); WBC 8.94 X1000 (4.8-10.8)
[2018-03-23 07:35] LABS: AGAP 8; BUN 14 mg/dL (8-22); CALCIUM 8.9 mg/dL (8.8-10.2); CHLORIDE 102 mmol/L (98-107); COSMO 282; CREATININE 0.6 mg/dL (0.7-1.2); ESTIMATED GFR > 60; GLUCOSE 112 mg/dL (70-104); POTASSIUM 4.7 mmol/L (3.5-5.1); SODIUM 141 mmol/L (136-145); TCO2 31 mmol/L (25-35)
[2018-03-23] MEDS: COLACE PO SCH ×2 (08:43→21:23)
[2018-03-23] MEDS: ROCEPHIN 2 GM in NS 50 ML IV SCH ×2 (08:44→21:24)
[2018-03-23] MEDS: CELEBREX PO SCH ×2 (08:44→21:23)
[2018-03-23] MEDS: OXY IR PO PRN ×2 (08:53→12:44)
--- NOTE | 2018-03-23 15:12 | PROGRESS NOTE ---
DATE: 03/23/2018 SUBJECTIVE: The patient is resting comfortably in bed. Not in any obvious distress. OBJECTIVE: Vital signs: Temperature 97.7 degrees, pulse is 72, respirations 14, blood pressure is 127/70, oxygen saturation is 98%. HEENT: Atraumatic, normocephalic. Cardiovascular system: S1, S2. Respiratory system: Has evidence of good air entry bilaterally. Abdomen: Soft, nontender. No masses felt. Extremities: Has dressings over both lower extremities. Central nervous system: No obvious focal deficits noted. LABS: Labs as follows: WBC is 8.94, hematocrit 34.7 with a platelet count of 488. Sodium is 141, potassium 4.0, chloride is 102, bicarbonate 31. BUN is 14 and creatinine 0.6. ASSESSMENT AND PLAN: 1. Haemophilus influenzae bacteremia. Continue antibiotics as recommended by Infectious Disease. 2. Bilateral septic arthritis with hardware. Continue antibiotics as recommended by Infectious Disease. 3. Pansinusitis with possible pneumonia. Continue antibiotics. 4. History of hepatitis C noted. The patient will need to follow up with Infectious Disease or Gastroenterology post discharge. 5. Deep vein thrombosis prophylaxis. Lovenox. 6. Gastrointestinal prophylaxis. Proton pump inhibitor. DISPOSITION: The patient is awaiting placement at [facility]. (formerly [facility]). cc: Homero Page MD
--- NOTE | 2018-03-23 16:24 | INFECTIOUS DISEASE PROGRESS NO ---
DATE: 03/23/2018 PRESENT ILLNESS: The patient had an Haemophilus bacteremia with an associated hematogenous involvement of both total knee arthroplasties. MEDICATIONS: This is the 6th day of treatment with Rocephin in a dose of 2 g IV every 12 hours. PHYSICAL EXAMINATION: Vital Signs: Temperature is 97.7 degrees, pulse 72, respirations 14, blood pressure 127/73. General: The patient appears to be doing quite well. He looks healthy, is in no acute distress. Head, eyes, ears, nose, and throat: He can hear my spoken words and see near objects. He does not have any white patches on his tongue. Neck: No meningismus. Lungs: Clear to auscultation. Cardiovascular: Heart rate is regular. Extremities: Patient has extensive dressings and Jacques wraps around both legs. He has a PICC in the left arm. The site is not erythematous or swollen. Cardiovascular: Heart rate is regular. Lungs: Clear to auscultation. Abdomen: Soft and nontender. Neurologic: The patient is awake. He was able to ambulate today. There is no tremor. LAB AND X-RAY: CBC shows a white count of 8940, hemoglobin 11.4, and platelet count 488,000 creatinine is 0.6. GFR is greater than 60. ASSESSMENT AND PLAN: Patient tomorrow will have had 1 week of antibiotics following his last surgery on his knees. He will need 5 more weeks after tomorrow. He is going to go to a rehab facility where he will get his antibiotics and when he leaves the facility [facility] will be supplying his antibiotics to complete a 6-week treatment course. COMORBIDITIES: The patient's comorbidities, he has mild sinus disease, which is the only pathologic place that I was able to find for the patient's Haemophilus bacteremia to have arisen from. cc: Fabrizio Seth MD
[2018-03-24] MEDS: OXY IR PO PRN ×3 (01:25→12:08)
[2018-03-24] MEDS: TYLENOL PO SCH ×2 (06:39→09:10)
[2018-03-24] MEDS: ULTRAM PO SCH ×2 (06:40→09:10)
[2018-03-24] MEDS: LOVENOX SUBQ SCH (06:41)
[2018-03-24 07:12] VITALS: BP 142/85
[2018-03-24] MEDS: ROCEPHIN 2 GM in NS 50 ML IV SCH (08:25)
[2018-03-24] MEDS: COLACE PO SCH (09:10)
[2018-03-24] MEDS: CELEBREX PO SCH (09:10)
--- NOTE | 2018-03-24 11:30 | DISCHARGE SUMMARY ---
ADMISSION DATE: 03/14/2018 DISCHARGE DATE: PRINCIPAL DIAGNOSIS: Haemophilus influenzae bacteremia. SECONDARY DIAGNOSES: 1. Septic arthritis both knees with hardware. 2. Pansinusitis. 3. Possible pneumonia. 4. History of hepatitis C. 5. Hypertension. DISCHARGE MEDICATIONS: 1. Rocephin 2 g IV q.12 hours as directed. 2. Multivitamin with minerals 1 p.o. daily, 3. Hydrocodone/acetaminophen 7.5/325 every 6 hours as needed. CONSULTATIONS DONE DURING THIS HOSPITAL STAY: 1. Dr. Fabrizio Seth, Infectious Disease. 2. Dr. Diogenes Harris, Orthopedics. PROCEDURES DONE DURING HOSPITAL STAY: Bilateral knee irrigation as well as debridement with knee arthrotomy/bilateral knee placement of dissolvable antibiotic beads 03/15/2018. On 03/14/2018 the patient had irrigation and drainage of right knee with polyethylene exchange and implantation of antibiotic beads. Also irrigation and drainage of left knee with antibiotic beads and also polyethylene exchange. HOSPITAL COURSE: Mr. Pak is a 61-year-old male who presented to hospital because of bilateral knee pain as well as swelling in his knees. During evaluation, he was noted to have a purulent material out of the knee joint. Orthopedics was consulted. The patient had bilateral total knees about 4 years ago. On 03/15/2018, the patient had bilateral knee indication and debridement with knee arthrotomy as well as placement of dissolvable antibiotic beads. On 03/18/2018, patient had repeat procedure done. This was irrigation and drainage of both knees with a polyethylene exchange and implantation of antibiotic beads. The patient was noted to have positive blood cultures for Haemophilus and as such, was placed on antibiotic Rocephin. Antibiotic management was done by the Infectious Disease Team. The patient did have a maxillofacial CT scan which showed mild ethmoid and maxillary sinus mucosal disease. DISPOSITION: At this time, patient has done well. He is stable. He can now be discharged to [facility] where he will continue to recuperate. DISCHARGE MEDICATIONS: With regards to his antibiotics, instructions given by Dr. Seth will need to be followed up. The patient will also need to follow up with Dr. Diogenes Harris, Orthopedic Surgery. cc: Homero Page MD
== END 2018-03-24 12:14 | DRG 485 ==
LOC: SUPCPDRO → ED 21:14 → SUATTDRO 23:24 → 3N 23:24
PROVIDERS: ATTEND Internal Medicine
CPT/HCPCS: 36569; 70486; 71010; 71045; 73560; 80048; 80053; 80069; 81001; 82784; 83605; 84550; 85025; 85610; 85651; 86140; 87040; 87070; 87075; 87205; 88300; 88304; 88312; 89051; 93005; 94640; 94761; 94762; 96365; 96366; 96375; 97110; 97116; 97162; 97165; 97530; 99285; A9270; J0692; J0696; J1100; J1650; J2175; J2250; J2270; J2405; J3010; J3260; J3370; J7030; J7050; J7120